=== PATIENT | male | born 1995 | race Caucasian/White ===

== ENCOUNTER 2018-12-31 19:50 | Emergency (ER) | payer SELFPAY ==
[~2018-12-31] VITALS: Ht 175.3 cm; Wt 89.1 kg
[2018-12-31 23:00] VITALS: BP 121/80
== END 2018-12-31 23:36 | disposition home or self-care (01) ==
LOC: EMS 19:53
DX: S02.5XXA Fracture of tooth (traumatic), initial encounter for closed fracture (principal); S63.602A Unspecified sprain of left thumb, initial encounter; S60.222A Contusion of left hand, initial encounter; V18.4XXA Pedal cycle driver injured in noncollision transport accident in traffic accident, initial encounter; Y93.89 Activity, other specified; Y92.89 Other specified places as the place of occurrence of the external cause; Y99.8 Other external cause status
CPT/HCPCS: 29280